=== PATIENT | female | born 1945 | race Caucasian/White ===

== ENCOUNTER 2017-04-03 07:09 | Day surgery (SDC) | payer MEDICARE, BC ==
[~2017-04-03 07:09] MED LIST: Buffered Lidocaine 1% SYRIN* 5 ML/SYR SYRINGE INTRADERM ONE; NS 0.9% 1000 ML* 1,000 ML IV SCH
[2017-04-03] MEDS ORDERED: Buffered Lidocaine 1% SYRIN* 5 ML/SYR SYRINGE ONE (07:44)
[2017-04-03] MEDS ORDERED: Midazolam* 1 MG/ML 2 ML VIAL (2 MG) ONE (08:24)
[2017-04-03] MEDS ORDERED: Bupivacaine 0.25% SDV* 30 ML ONE (08:30)
[2017-04-03] MEDS ORDERED: Betamethasone INJ* 6 MG/ML 5 ML VIAL (30 MG) ONE (08:41)
[2017-04-03] MEDS ORDERED: Lidocaine 1% MPF* 2 ML VIAL ONE (08:41)
[2017-04-03] MEDS ORDERED: fentaNYL* 50 MCG/ML 2 ML VIAL (100 MCG VIAL) ONE (08:46)
[2017-04-03] MEDS ORDERED: Lidocaine 2% PF * 5 ML VIAL ONE ×2 (08:46→09:58)
[2017-04-03] MEDS ORDERED: Propofol* 10 MG/ML 20 ML BTL IV PUSH ONE ×2 (08:46→09:58)
[2017-04-03] MEDS ORDERED: Ondansetron INJ* 2 MG/ML VIAL IV PRN (09:02)
[2017-04-03] MEDS ORDERED: PROCHLORPERAZINE INJ 5 MG/ML 2 ML VIAL IV PRN (09:02)
[2017-04-03] MEDS ORDERED: Acetaminophen TAB* 325 MG PO PRN (09:02)
[2017-04-03] MEDS ORDERED: HYDROcodone/ACETAMIN 5-325 MG* 1 TAB PO PRN (09:02)
[2017-04-03 09:32] VITALS: BP 135/60
[2017-04-03] MEDS ORDERED: Ketorolac INJ* 30 MG/ML 1 ML VIAL ONE (09:58)
--- NOTE | 2017-04-04 05:06 | OP ---
DATE OF OPERATION: 04/03/17 - [facility] DATE OF : 45 SURGEON: Richmond Garcias MD [employer]: ORESTES Coffey ANESTHESIOLOGIST: Dr. Castillo. ANESTHESIA: Local MAC. PRE-OP DIAGNOSES: 1. Right carpal tunnel syndrome. 2. Right thumb basal joint arthritis. POST-OP DIAGNOSES: 1. Right carpal tunnel syndrome. 2. Right thumb basal joint arthritis. OPERATIVE PROCEDURE: 1. Right open carpal tunnel release. 2. Steroid injection, right thumb carpometacarpal joint. INDICATIONS: Ritu is a 72-year-old female who has significant right carpal tunnel syndrome electrodiagnostically and clinically. She tried multiple modalities for non-operative treatment and ultimately the symptoms just kept coming back. We talked about the risks and benefits. She wanted to proceed with right carpal tunnel release. Additionally, the base of the right thumb has really started to bother her. I talked to her about doing a steroid injection for that while she was under anesthesia and she wanted to do that. ESTIMATED BLOOD LOSS: 5 mL. COMPLICATIONS: None. FINDINGS: As expected. DESCRIPTION OF PROCEDURE: Ritu was seen in the preoperative holding area and the correct side, site, and procedure were identified. We came back to the operating room, where she got some anesthesia and we then had a time-out and then infiltrated the operative area with 0.25% Marcaine. I then cleaned the area over the right thumb carpo-metacarpal joint with alcohol. A 25-gauge needle was used to inject 1 mL of 1% lidocaine and 6 mg of betamethasone into the joint. At this point, the arm was prepped and draped in the usual fashion and then we had a formal time-out. I began by making a longitudinal 2 cm incision in the typical location for an open carpal tunnel release. Dissection was carried down through the subcutaneous tissue and the palmar fascia was divided longitudinally. With the transverse carpal ligament exposed, I then took the 15 blade and released the transverse carpal ligament just off the radial aspect of the hook of the hamate. This was started distally and then the release was carried out proximally. Once I got to the level of the proximal aspect of the incision, I debrided the subcutaneous tissue and retracted it superficially and ulnarly with the Prashanth retractor. Under direct visualization, I then used a tenotomy scissors to release the rest of the transverse carpal ligament in the distal antebrachial fascia to a level several centimeters proximal to the volar wrist flexion crease. This was released just off the ulnar aspect of the palmaris longus tendon. I then checked the release proximally and distally. I released a little bit more distal palmar fascia. There was absolutely no compression on the median nerve. Everything looked good and so we went ahead and irrigated out the wound and closed the skin with some 4-0 nylon suture. The wound was then dressed with Xeroform, 4x4's, sterile Webril and an Sp wrap. She was then woken up and taken to the recovery room in stable condition. [id number]/[facility] #: [id number] NISSA
== END 2017-04-03 09:48 | disposition home or self-care (01) ==
LOC: OREAST 07:09
PROVIDERS: ATTEND Orthopaedic Surgery Hand Surgery
DX: G56.01 Carpal tunnel syndrome, right upper limb (principal); M18.11 Unilateral primary osteoarthritis of first carpometacarpal joint, right hand; I47.1 Supraventricular tachycardia; I10 Essential (primary) hypertension; J45.909 Unspecified asthma, uncomplicated; G47.33 Obstructive sleep apnea (adult) (pediatric)
CPT/HCPCS: J0702; J1885; J2250; J2704; J3010

== ENCOUNTER 2017-10-31 13:20 | Inpatient (IN) | payer MEDICARE, BC ==
[2017-10-31] MEDS ORDERED: diPHENhydraMINE PO* 25 MG ONE (14:40)
[2017-10-31] MEDS ORDERED: Diazepam TAB(*) 5 MG ONE (14:40)
[2017-10-31] MEDS ORDERED: Lidocaine 1% INJ* 10 MG/ML 30 ML SDV ONE (15:14)
[2017-10-31] MEDS ORDERED: Iohexol 350 (CONTRAST) 200 ML MDV IV ONE ×3 (15:15→17:06)
[2017-10-31] MEDS ORDERED: Heparin 2 UNITS/ML IVPREMIX* 2,000 ML IV ONE (15:15)
[2017-10-31] MEDS ORDERED: fentaNYL* 50 MCG/ML 2 ML VIAL (100 MCG VIAL) ONE (15:30)
[2017-10-31] MEDS ORDERED: Midazolam* 1 MG/ML 10 ML VIAL (10 MG) ONE (15:30)
[2017-10-31] MEDS ORDERED: nitroGLYCERIN DRIP* 25,000 MCG/250 ML BTL ONE ×2 (15:51→16:52)
[2017-10-31] MEDS ORDERED: Heparin(*) 1000 UNIT/ML 10 ML VIAL CATH LAB IV ONE (15:51)
[2017-10-31] MEDS ORDERED: Ticagrelor* 90 MG TAB PO ONE (15:53)
[2017-10-31] MEDS ORDERED: Aspirin Low Dose CHEW TAB* 81 MG ONE (15:54)
[2017-10-31] MEDS ORDERED: Bivalirudin(*) 250 MG VIAL ONE (16:09)
[2017-10-31] MEDS ORDERED: Nitroglycerin TAB 0.4 MG* 0.4 MG TAB SL PRN (17:57)
[2017-10-31] MEDS: nitroGLYCERIN DRIP* 25,000 MCG/250 ML BTL IV SCH (18:00)
[2017-10-31] MEDS ORDERED: NS 0.9% 1000 ML* 1,000 ML IV SCH (18:00)
[2017-10-31] MEDS ORDERED: Zolpidem TAB* 5 MG PO PRN (18:01)
[2017-10-31] MEDS ORDERED: Ondansetron INJ* 2 MG/ML VIAL IV PRN (18:01)
[2017-10-31] MEDS ORDERED: Docusate CAP* 100 MG PO PRN (18:01)
[2017-10-31] MEDS ORDERED: Acetaminophen TAB* 325 MG PO PRN (18:01)
[2017-10-31] MEDS ORDERED: oxyCODONE/Acetamin 5/325 MG* TAB PO PRN (18:01)
[2017-10-31] MEDS ORDERED: fentaNYL* 50 MCG/ML 2 ML VIAL (100 MCG VIAL) IV PRN (18:01)
[2017-10-31] MEDS ORDERED: Digoxin TAB* 0.25 MG PO SCH (19:45)
[2017-10-31] MEDS ORDERED: Cetirizine* 10 MG TAB PO SCH (21:00)
[2017-10-31] MEDS ORDERED: Ticagrelor* 90 MG TAB PO SCH (21:00)
[2017-10-31] MEDS: Atorvastatin* 80 MG TAB PO SCH (21:31)
[2017-10-31] MEDS: Ticagrelor* 90 MG TAB PO SCH (21:32)
[2017-10-31] MEDS: Mometasone 220 MCG MDI INH SCH (21:44)
--- NOTE | 2017-11-01 04:54 | CATH ---
CC: Dr. Kymberly Hwang; Dr. Zeb Molina; Dr. Mary Rodriguez * CARDIAC CATHETERIZATION: DATE OF PROCEDURE: 10/31/17 - ROOM #ICU-10 PROCEDURE: Cardiac catheterization including left heart catheterization, left ventriculogram, coronary angiography. INDICATION: Crescendo angina, abnormal stress test. The patient is a 72-year-old female with a history of hypertension, history of PVCs, has been having crescendo angina for a couple of weeks. The patient had been having crescendo angina. The patient underwent an exercise stress echo with Dr. Hwang. She exercised for 6.5 minutes. She had typical anginal type symptoms, significant ST-segment depression, and akinesis of her apex. Cardiac catheterization was recommended. DESCRIPTION OF PROCEDURE: The patient was brought to the cardiac catheterization lab in a fasting state. Informed consent had been obtained prior to the procedure. All labs had been reviewed. The patient was placed supine on the catheterization table. Both femoral areas were cleaned and draped in the usual fashion, 1% lidocaine was used for local anesthesia. The right femoral artery was entered via modified Seldinger technique and a 6- Gabonese sheath introducer was placed. The patient underwent left ventriculogram, coronary angiography using a 6-Gabonese pigtail catheter, 6-Gabonese JL4 catheter, 6 -Gabonese JR4 catheter. At the end of the procedure, the patient went on to have stenting of her LAD. Please see Dr. Molina's note for those details. A total of 30 cc of Omnipaque dye was used, a total of 1.5 minutes of fluoro time was used. FINDINGS: HEMODYNAMICS: 1. Central aortic blood pressure 141/55 with a mean of 91. Left ventricular pressure 142/9 with an end-diastolic pressure of 12. 2. Left ventriculogram: Left ventricle was normal in size and systolic function. Estimated ejection fraction 65%. There was no mitral regurgitation. The aortic valve and ascending aorta are normal. CORONARY ARTERIES: 1. Left main: The left main was normal in size. It bifurcated into the LAD and circumflex. There is no evidence of stenosis. 2. Left anterior descending artery: The LAD was normal in size. It gave up 2 diagonal vessels. There was a 95% stenosis at the bifurcation of D2 vessel that involves both the LAD and the ostium of D2. The remainder of the vessel was without disease. The remainder of D2 vessel was without disease. 3. Left circumflex artery: The left circumflex artery was normal in size. It gave off 1 obtuse marginal branch. There was no evidence of stenosis. 4. Right coronary artery: The RCA was a large dominant vessel. It gave off the PDA and the posterolateral branch. There was no evidence of stenosis. There was evidence of right to left collaterals via septal perforators. IMPRESSION: 1. Normal left ventricular size and systolic function. 2. 95% stenosis of the mid left anterior descending at the bifurcation of the D2 vessel. 3. Normal left circumflex artery and right coronary artery. RECOMMENDATION: The patient will undergo stenting to the LAD with Dr. Molina [id number]/[facility] #: [id number] NISSA
[2017-11-01 05:47] LABS: Hematocrit 39 % (35-47); Hemoglobin 13.1 g/dl (12.0-16.0); Mean Corpuscular HGB Conc 34 g/dl (31-36); Mean Corpuscular Hemoglobin 32 pg (27-31); Mean Corpuscular Volume 93 fL (80-97); Mean Platelet Volume 8 um3 (7.4-10.4); Red Blood Count 4.15 10^6/ul (4.0-5.4); Red Cell Distribution Width 13 % (10.5-15); White Blood Count 8.8 10^3/ul (3.5-10.8)
[2017-11-01 06:03] LABS: Albumin 3.7 g/dL (3.2-5.2); BUN/Creatinine Ratio 19.7 (8-20); Calcium 8.9 mg/dL (8.6-10.3); EGFR African American 113.2 (>60); Globulin 2.3 g/dL (2-4); HDL Cholesterol 39.8 mg/dL; Potassium 3.8 mmol/L (3.5-5.0); Total Bilirubin 0.7 mg/dL (0.2-1.0)
[2017-11-01] MEDS ORDERED: Omeprazole CAP* 20 MG PO SCH (07:30)
[2017-11-01] MEDS ORDERED: Potassium Chlor TAB* 20 MEQ TAB.ER PO ONE (08:48)
[2017-11-01] MEDS ORDERED: VERAPAMIL HCL 120 MG PO SCH (09:00)
[2017-11-01] MEDS ORDERED: Montelukast Sodium TAB* 10 MG PO SCH (09:00)
[2017-11-01] MEDS ORDERED: Aspirin Low Dose CHEW TAB* 81 MG PO SCH (09:00)
[2017-11-01] MEDS: Mometasone 220 MCG MDI INH SCH (09:21)
[2017-11-01] MEDS: Ticagrelor* 90 MG TAB PO SCH (09:21)
[2017-11-01] MEDS ORDERED: Verapamil SR TAB* 240 MG PO SCH (15:00)
[2017-11-01] MEDS: Atorvastatin* 80 MG TAB PO SCH (16:54)
[2017-11-01] MEDS: nitroGLYCERIN DRIP* 25,000 MCG/250 ML BTL IV SCH (16:54)
[2017-11-01] MEDS ORDERED: Digoxin TAB* 0.25 MG PO SCH (17:00)
[2017-11-01 17:51] VITALS: BP 178/95
--- NOTE | 2017-11-02 22:28 | CATH ---
CC: Dr. Kymberly Hwang; Dr. Mary Rodriguez INTERVENTIONAL REPORT: DATE OF PROCEDURE: 10/31/17 REASON FOR INTERVENTION: The patient with markedly abnormal nuclear stress test. PROCEDURE: Percutaneous coronary angioplasty and placement of a 2.25 x 12 mm long synergy drug eluti ng stent in the diagonal branch and placement of a 2.75 x 16 mm long synergy drug eluting stent in th e mid LAD. The patient already underwent diagnostic cardiac catheterization by Dr. Abhinav Sandoval, which is comme nted on a separate report. Decision was made to proceed with intervention. The patient had an exist ing 6-Angolan sheath in place. EQUIPMENT USED: Guiding catheter, a [employer] 3.5 curved Run[employer] 6-Angolan guide. Interventional guidewires [employer] [place] [employer]. Preliminary kissing balloon catheters - 2.0 x 12 mm emerge balloon, 2.0 x 12 mm long emerge balloon, stent placement 2.75 x 16 mm long synergy stent in LAD, 2.25 x 12 mm long synergy stent in diagonal b ranch. Kissing balloon post stent deployment with a 2.75 x 15 mm long NC emerge in LAD and a 2.0 x 12 mm sivan g emerge balloon in diagonal to high pressure. Closure device, a 6/7 Angolan Mynx vascular closure device. MEDICATIONS GIVEN DURING THE PROCEDURE: Included: 1. Brilinta 180 mg. 2. Aspirin 81 mg. 3. 4500 units of heparin followed by Angiomax bolus and Angiomax drip for a nontherapeutic ACT. 4. Intracoronary nitroglycerin. DESCRIPTION OF PROCEDURE: The patient underwent placement of both guidewires followed by kissing bal loon angioplasty. The LAD stent was placed with the wire still present in the diagonal branch. Of n ote, the diagonal branch developed total occlusion, which was rewired with balloon angioplasty and ev entually placement of a 2.25 x 12 mm long synergy drug eluting stent. Final kissing balloon was perf ormed to both arteries. RESULTS: Successful reduction of critical 95% lesion involving both mid diagonal branch and mid LAD with balloon angioplasty and placement of a 2.75 x 16 mm long synergy drug eluting stent post dilated at 2.85 to 2.9 mm with balloon angioplasty and placement of a 2.25 x 12 mm long synergy drug eluting stent post dilated to 2.5 mm with transient abrupt occlusion of the diagonal branch successfully rec analized with ARCHANA-3 flow seen throughout, residual ostial narrowing of the diagonal branch of 30% wi th 0% residual stenosis in LAD, ARCHANA-3 flow, no dissection seen. The patient should be maintained on dual antiplatelet therapy for a minimum of a year perhaps optimally 30 months with aggressive risk f actor management under Dr. Hwang, the patient's primary tube drawer. Given the fact that there wa s transient occlusion of the smaller diagonal branch, we would anticipate some enzyme spell from this area. These will be checked postprocedure as well as EKG. Of note, the patient was stable at the end of the case with no significant chest or arm discomfort. [id number]/[facility] #: [id number]
--- NOTE | 2017-11-02 22:53 | DS ---
CC: Dr. Mary Rodriguez; Dr. Hwang DISCHARGE SUMMARY: DATE OF ADMISSION: 10/31/17 DATE OF DISCHARGE: 11/01/17 HISTORY OF PRESENT ILLNESS: The patient is a 72-year-old woman with a history of PVCs several years ago in the setting of severe acute bronchitis and COPD that subsequently resolved with treatment of h er underlying pulmonary disorder, verapamil, and digoxin. The patient presented to her primary care stating that for several weeks she had been getting chest d iscomfort, left shoulder and left arm pressure when she did strenuous activity and she was referred f or stress echo. This was done 10/31/17 by me in our office and was markedly abnormal with severe ST depression and an apical wall motion abnormality induced. The patient was sent to the hospital for elective cardiac catheterization the same day and this revea led a single-vessel disease with a 95% occlusion in the mid LAD complex at the bifurcation of the sec ond diagonal and involving the second diagonal. The left main was free of disease. The left circumf janeen had no significant disease. The right coronary artery was dominant and no evidence of stenosis, there was evidence of [id number] collaterals noted. The patient underwent stenting to the LAD and diagonal, there were difficulties keeping the diagonal open per verbal report of Dr. Molina, but ultimately the procedure was successful. On the day of discharge, the patient states she is feeling overall much better. She has had no recurr ence of the chest or arm pain. She had not slept well because of bed discomfort, but denied shortnes s of breath or troubles with the cath site in her leg. She denied palpitations or racing of the hear t. PAST MEDICAL HISTORY: 1. PVCs over 11,000 in 2012 and 23,000 in November 2013 (resolved with treatment of underlying pulmon jon disorder, verapamil, and digoxin). 2. History of hypertension. 3. Asthma. 4. Obstructive sleep apnea, severe, 2013, no longer needs CPAP post weight loss. 5. Recurrent sinusitis. 6. Erythema nodosum, SILVINO positive 7. Reflux. 8. Peripheral vascular disease recently diagnosed with abnormal ABIs, October 2017. 9. Dyslipidemia. PAST SURGICAL HISTORY: Includes: 1. Hysterectomy. 2. Cholecystectomy. 3. Carpal tunnel release. OUTPATIENT MEDICATIONS: Included: 1. Atorvastatin 10 mg a day. 2. Potassium 10 mEq a day. 3. Hydrochlorothiazide 12.5 mg a day. 4. Verapamil ER 120 mg a day. 5. Omeprazole 20 mg a day. 6. Aspirin 81 mg a day. 7. Digoxin 375 mcg a day. 8. Asmanex Twisthaler 120 MDI 2 puffs b.i.d. 9. Levocetirizine dihydrochloride 5 mg q.h.s. 10. Montelukast sodium 10 mg q. day. 11. Alprazolam 0.125 mg q.8 hours p.r.n. 12. Calcium 600 mg a day. 13. PreserVision AREDS 2 one tab b.i.d. 14. Xopenex HFA 45 mcg/ACT 2 puffs q.4 hours p.r.n. 15. Vitamin D 1000 units a day. 16. B12 500 mcg a day. 17. Fluticasone propionate 50 mcg/ACT 2 sprays each nostril daily. ALLERGIES: Include TETRACYCLINE, CECLOR, LATEX, ADHESIVE/ECG ELECTRODES, DULERA, LEVOFLOXACIN, and S HELLFISH-DERIVED PRODUCTS. SOCIAL HISTORY: The patient is with a supportive . She is retired from [employer]. The patient smoked for 10 years from ages 20 to 30. No history of alcohol use or abuse. Regular exe rcise. REVIEW OF SYSTEMS: As above with exercise-induced chest and arm pain, but additionally her legs have been tender and bothering her walking as well. She denies any recent respiratory flare-ups, fevers, chills, and other review of systems was unremarkable. PHYSICAL EXAM: On the day of discharge, the patient was seated, smiling, appeared comfortable, in no acute distress. She is 5 feet 4 inches, weighs 152 pounds, and has a BMI of 26.2. Vitals showed bl ood pressure 130/71, pulse was ranging 54 to 62, respiratory rate was 17. HEENT: Pupils are equal a nd round. Mucous membranes were moist. Neck: Without increased JVP appreciated. Breath sounds wer e clear. No wheezing, rales, or rhonchi. Coronary: S1, S2. Regular without murmurs (murmur heard 2 days before post exercise in the apex). Abdomen: Flat, nontender, no hepatosplenomegaly or masses. The lower extremities distally remains tender, but free of edema and have good distal pulses. Groi n examined by Dr. Molina. DIAGNOSTIC STUDIES/LAB DATA: Labs show from 11/01/17, white count 8.8, hemoglobin 13.1, hematocrit 3 9, and platelets 240. Sodium 135, potassium 3.8, chloride 103, bicarb 27, glucose 105, BUN 13, creat inine 0.66. ALT of 16. Total CPK from 10/31/17 was 77 with an MB of 11.7; MB fraction, 11/01/17, wa s 55.3. Total cholesterol 113, triglycerides 89, LDL cholesterol 55, and HDL cholesterol 40. INR wa s 0.95, PTT 31. Digoxin level, 02/07/17, 1.2. Stress echo from 10/31/17 as above markedly abnormal with exercise-induced 4- to 5- mm ST depression and apical wall motion abnormality. Cath report as above. ECG from 6 p.m., 10/31/17, post cath showed normal sinus rhythm 57 beats a minute, QRS axis 0, normal AV and IV conduction times with mild ST depression in the inferior leads II, III, and aVF and biphas ic, inverted T waves V1 through V3, subtle ST elevation in V1, V2. ECG on the day of discharge 6:23 in the morning, 11/01/17, showed normal sinus rhythm with 55 beats a minute, QRS axis +15, normal AV and IV conduction times, and she continues to have some abnormal T w aves in the precordial leads and ST depression laterally. SUMMARY: Ritu Fernandez is a 72-year-old woman, who presented with crescendo angina with an abnorma l stress test, found to have single-vessel disease with a complex lesion in the mid LAD extending int o the second diagonal, who underwent drug-eluting stent on 10/31/17. She is now angina free at least walking in the intensive care unit. DISCHARGE MEDICATIONS: She will be discharged on the following medications: 1. Aspirin 81 mg a day. 2. Crestor 40 mg a day. 3. Brilinta 90 mg b.i.d. 4. Omeprazole 20 mg a day. 5. Singulair 10 mg a day. 6. Xanax 0.125 mg p.r.n. 7. Xopenex inhaler 2 puffs q.4 hours p.r.n. 8. Xyzal 1 tab q.h.s. 9. Vitamin B12 500 mcg daily. 10. Calcium carbonate 600 mg every other day. 11. Vitamin D 1000 units daily. 12. PreserVision AREDS 1 tab b.i.d. 13. Potassium chloride 10 mEq once a day. 14. Hydrochlorothiazide 12.5 mg daily. 15. Verapamil 120 mg a day. DISCHARGE INSTRUCTIONS: She will follow up with Cardiology within a week for groin check. It has be en recommended that she undergo cardiac rehab. Written instructions and verbal instructions are prov ided to the patient for post cath care and expectations including avoiding heavy lifting. [id number]/[facility] #: [id number]
== END 2017-11-01 17:54 | disposition home or self-care (01) | DRG 247 ==
LOC: CHICATH 13:20 → ICU 19:01
PROVIDERS: ADMIT Internal Medicine Cardiovascular Disease; ATTEND Internal Medicine Cardiovascular Disease
PROC: 027145Z Dilation of Coronary Artery, Two Arteries with Two Drug-eluting Intraluminal Devices, Percutaneous Endoscopic Approach (ICD-10-PCS; 2017-10-31)
PROC: B211YZZ Fluoroscopy of Multiple Coronary Arteries using Other Contrast (ICD-10-PCS; 2017-10-31)
PROC: B214YZZ Fluoroscopy of Right Heart using Other Contrast (ICD-10-PCS; 2017-10-31)
PROC: 4A023N7 Measurement of Cardiac Sampling and Pressure, Left Heart, Percutaneous Approach (ICD-10-PCS; principal; 2017-10-31 14:30)
DX: I25.119 Atherosclerotic heart disease of native coronary artery with unspecified angina pectoris (principal); I11.9 Hypertensive heart disease without heart failure; L52 Erythema nodosum; J45.909 Unspecified asthma, uncomplicated; K21.9 Gastro-esophageal reflux disease without esophagitis; I73.9 Peripheral vascular disease, unspecified; I49.3 Ventricular premature depolarization; E78.5 Hyperlipidemia, unspecified; Z79.82 Long term (current) use of aspirin; Z79.899 Other long term (current) drug therapy; Z88.8 Allergy status to other drugs, medicaments and biological substances; Z88.1 Allergy status to other antibiotic agents; Z91.040 Latex allergy status; Z91.013 Allergy to seafood; Z87.891 Personal history of nicotine dependence
CPT/HCPCS: 36415; 80048; 80053; 80061; 82550; 82553; 85025; 85610; 85730; 87641; 93005; 93458; 94640; A9270-GY; C1725; C1760; C1769; C1876; C1887; C9600-LD; J0583; J1644; J2250; J3010

== ENCOUNTER 2024-09-09 15:25 | Inpatient (IN) ==
[2024-09-09 15:57] LABS: ABS Basophils 0.1 10^3/uL (0.0-0.1); ABS Eosinophils 0.1 10^3/uL (0.0-0.5); ABS Lymphocytes 2.2 10^3/uL (1.0-4.8); ABS Monocytes 0.5 10^3/uL (0.0-0.9); ABS Neutrophils 9.8 10^3/uL (1.5-7.6); ABS Nucleated RBC 0.02 10^3/ul; Hematocrit 36.7 % (35-45); Hemoglobin 12.3 g/dL (11.5-14.3); Lymphocyte % 16.9 %; Mean Corpuscular Hgb Conc 33.6 g/dL (31-36); Mean Corpuscular Volume 92.4 fL (80-97); Mean Platelet Volume 6.7 fL (7.5-11.2); Nucleated Red Blood Cells % 0.2 %/100WBC (0.0-0.8); Platelet Count 480 10^3/uL (150-450); Red Blood Count 3.97 10^6/uL (3.63-4.92); Red Cell Distribution Width 14.4 % (12-17); White Blood Count 12.8 10^3/uL (3.8-11.8)
[2024-09-09] MEDS: Lactated Ringers 1000 ml BAG IV.FLUID IV ONE (16:11)
[2024-09-09] MEDS: Metoprolol Tartrate 5 mg VIAL 5 ml VIAL (1 mg/ml) IV ONE (16:11)
[2024-09-09 16:14] LABS: INR 1.1 (0.85-1.14)
[2024-09-09 16:33] LABS: Albumin 3.9 g/dL (3.2-5.2); Albumin/Globulin Ratio 1.4 (1-3); Calcium 9.7 mg/dL (8.6-10.3); Creatinine, Serum 0.7 mg/dL (0.51-0.95); Globulin 2.8 g/dL (2-4); Potassium 3.7 mmol/L (3.5-5.0); Total Bilirubin 0.3 mg/dL (0.2-1.0); Total Protein 6.7 g/dL (6.4-8.9); eGFR CKD-EPI 87.9 (>60)
[2024-09-09] MEDS: Heparin 5000 UNITS/ML 1 mL VIAL IV SCH (16:49)
[2024-09-09] MEDS: Heparin DRIP 25,000 UNITS BAG 25,000 UNITS/250 ML BAG IV SCH (16:50)
[2024-09-09 16:56] LABS: ABS Basophils 0.1 10^3/uL (0.0-0.1); ABS Eosinophils 0.1 10^3/uL (0.0-0.5); ABS Lymphocytes 1.6 10^3/uL (1.0-4.8); ABS Monocytes 0.7 10^3/uL (0.0-0.9); ABS Neutrophils 8.7 10^3/uL (1.5-7.6); ABS Nucleated RBC 0.01 10^3/ul; Hematocrit 34.3 % (35-45); Hemoglobin 11.4 g/dL (11.5-14.3); Lymphocyte % 14.2 %; Mean Corpuscular Hemoglobin 30.6 pg (27-33); Mean Corpuscular Hgb Conc 33.2 g/dL (31-36); Mean Corpuscular Volume 92.2 fL (80-97); Mean Platelet Volume 6.5 fL (7.5-11.2); Platelet Count 426 10^3/uL (150-450); Red Blood Count 3.72 10^6/uL (3.63-4.92); Red Cell Distribution Width 14.5 % (12-17); White Blood Count 11.2 10^3/uL (3.8-11.8)
[2024-09-09 17:22] LABS: High Sensitivity Troponin 1 Hr 427 pg/mL (<15)
[2024-09-09 17:29] LABS: Creatinine, Serum 0.68 mg/dL (0.51-0.95); eGFR CKD-EPI 88.5 (>60)
[2024-09-09 18:32] LABS: High Sensitivity Troponin 3 Hr 525 pg/mL (<15)
[2024-09-09 19:38] LABS: Magnesium 1.6 mg/dL (1.9-2.7)
[2024-09-09 19:45] LABS: Osmolality Serum 267 mOsm/kg (275-295)
[2024-09-09 21:48] LABS: High Sensitivity Troponin 1 Hr 1858 pg/mL (<15)
[2024-09-09] MEDS: NS 0.9% 1000 ml BAG 1,000 ML IV SCH ×2 (23:16)
[2024-09-09 23:46] LABS: High Sensitivity Troponin 3 Hr 2657 pg/mL (<15)
[2024-09-10] MEDS: Iohexol 350 (CONTRAST) 500 ML MDV IV ONE (02:35)
[2024-09-10 04:25] LABS: High Sensitivity Troponin 1 Hr 3371 pg/mL (<15)
[2024-09-10 06:19] LABS: ABS Basophils 0.1 10^3/uL (0.0-0.1); ABS Eosinophils 0.2 10^3/uL (0.0-0.5); ABS Lymphocytes 2.4 10^3/uL (1.0-4.8); ABS Monocytes 0.7 10^3/uL (0.0-0.9); ABS Neutrophils 7.3 10^3/uL (1.5-7.6); Eosinophil % 1.6 %; Hematocrit 34.2 % (35-45); Hemoglobin 11.9 g/dL (11.5-14.3); Lymphocyte % 22.6 %; Mean Corpuscular Hemoglobin 31.9 pg (27-33); Mean Corpuscular Hgb Conc 34.8 g/dL (31-36); Mean Corpuscular Volume 91.5 fL (80-97); Mean Platelet Volume 6.6 fL (7.5-11.2); Platelet Count 432 10^3/uL (150-450); Red Blood Count 3.73 10^6/uL (3.63-4.92); White Blood Count 10.6 10^3/uL (3.8-11.8)
[2024-09-10 06:44] LABS: Calcium 8.8 mg/dL (8.6-10.3); Creatinine, Serum 0.45 mg/dL (0.51-0.95); Magnesium 1.6 mg/dL (1.9-2.7); Potassium 3.9 mmol/L (3.5-5.0); eGFR CKD-EPI 97.8 (>60)
[2024-09-10 07:05] LABS: High Sensitivity Troponin 3 Hr 4254 pg/mL (<15)
[2024-09-10] MEDS ORDERED: Magnesium Sulfate 2 gm BAG 2 GM/50 ML BAG ONE ×2 (07:36→09:14)
[2024-09-10] MEDS ORDERED: Midazolam 5 mg/5 ml VIAL 1 mg/ml 5 ml VIAL (5 mg) ONE ×2 (07:37→09:02)
[2024-09-10] MEDS ORDERED: fentaNYL 250 mcg/5 ml 50 MCG/ML 5 ml VIAL (250 MCG) ONE (07:38)
[2024-09-10] MEDS: Magnesium Sulfate 2 GM IV (Premix) IVPB SCH (07:40)
[2024-09-10] MEDS ORDERED: Sulfur Hexaflouride MICROSPHR 25 MG VIAL ONE (07:41)
[2024-09-10] MEDS ORDERED: Magnesium Sulf 4 GM/100 ML IV 4,000 MG/100 ML BAG IVPB ONE (07:48)
[2024-09-10] MEDS: Midazolam 10 mg/10 ml VIAL 1 mg/ml 10 ml VIAL (10 mg) IV SLOW PU ONE (07:50)
[2024-09-10] MEDS: fentaNYL 100 mcg/2 ml 50 MCG/ML VIAL IV SLOW PU ONE (07:51)
[2024-09-10] MEDS: Sulfur Hexaflouride MICROSPHR 25 MG VIAL IV PRN (08:10)
[2024-09-10] MEDS ORDERED: VERAPAMIL 2.5 MG/ML 2 ML VIAL ** 5 mg/2 ml ONE (09:02)
[2024-09-10] MEDS ORDERED: Heparin 1,000 UNIT/ML 10 ml (10,000 UNITS) CATHLAB/DIALYSIS ONE (09:02)
[2024-09-10] MEDS ORDERED: fentaNYL 100 mcg/2 ml 50 MCG/ML VIAL ONE (09:02)
[2024-09-10] MEDS ORDERED: Heparin 2 UNITS/ML 1000 mls 2,000 ML IV ONE (09:03)
[2024-09-10] MEDS ORDERED: Lidocaine 1% MPF 5 ML VIAL ONE (09:03)
[2024-09-10] MEDS ORDERED: nitroGLYCERIN DRIP 25,000 MCG/250 ML BTL ONE (09:03)
[2024-09-10] MEDS ORDERED: Iohexol 350 (CONTRAST) 200 ML MDV IV ONE (09:18)
[2024-09-10] MEDS: Metoprolol Tartrate 5 mg VIAL 5 ml VIAL (1 mg/ml) IV ONE (10:38)
[2024-09-10 15:18] VITALS: BP 118/60
[2024-09-10] MEDS ORDERED: Aspirin EC 81 mg TAB.EC (enteric coated) PO SCH (21:00)
== END 2024-09-10 15:23 | disposition short-term general hospital (02) | DRG 281 ==
LOC: ED 15:25 → EDHOLD 15:25 → OBSVTOIN 18:44 → MEDTELE 23:42 → ICU 09-10 11:23
PROVIDERS: ADMIT Student in an Organized Health Care Education/Training Program; ATTEND Student in an Organized Health Care Education/Training Program